=== PATIENT | female | born 1990 | race African-American/Black ===

== ENCOUNTER 2021-08-31 13:55 | Emergency (ER) | payer MEDICAID, SELFPAY ==
[2021-08-31 14:05] VITALS: BP 136/60; PULSE 76; RESP 18; TEMP 36.8; O2SAT 100
--- NOTE | 2021-08-31 15:31 | ED.SKABFB ---
HPI - Skin/Abscess/Foreign Bdy General Chief complaint: Skin/Abscess/Foreign Body <Petr Hurd MD - Last Filed: 08/31/21 16:35> Stated complaint: boil under arm <Petr Hurd MD - Last Filed: 08/31/21 16:35> Time Seen by Provider: 08/31/21 15:06 <Petr Hurd MD - Last Filed: 08/31/21 16:35> Source: patient <Petr Hurd MD - Last Filed: 08/31/21 16:35> Mode of arrival: ambulatory <Petr Hurd MD - Last Filed: 08/31/21 16:35> Limitations: no limitations <Petr Hurd MD - Last Filed: 08/31/21 16:35> History of Present Illness HPI narrative: Patient is a 31-year-old female complaining of swelling and tenderness on her left arm started 1 week ago. Patient states that she has a history of abscess in that area, diagnosed with hidradenitis suppurativa. Patient denies any fever or chills. Patient has no other complaints. <Petr Hurd MD - Last Filed: 08/31/21 16:35> Related Data Allergies/Adverse reactions: Allergies Allergy/AdvReac Type Severity Reaction Status Date / Time No Known Allergies Allergy Verified 08/31/21 15:24 <Petr Hurd MD - Last Filed: 08/31/21 16:35> Review of Systems Review of Systems: Elevated per HPI <Petr Hurd MD - Last Filed: 08/31/21 16:35> All systems reviewed & are unremarkable except as noted in HPI and below <Petr Hurd MD - Last Filed: 08/31/21 16:35> Constitutional: Constitutional: Denies body ache(s), Denies chills, Denies excessive sweating, Denies fatigue, Denies fever(s), Denies headache(s), Denies lethargy, Denies malaise, Denies weakness and Denies weight loss <Petr Hurd MD - Last Filed: 08/31/21 16:35> Eyes: Eyes: Denies blurry vision, Denies change in vision and Denies loss of vision <Petr Hurd MD - Last Filed: 08/31/21 16:35> ENT: Denies dizziness, Denies ear discharge, Denies headache(s), Denies lip swelling, Denies epistaxis, Denies nasal congestion, Denies neck pain, Denies throat swelling and Denies tongue swelling <Petr Hurd MD - Last Filed: 08/31/21 16:35> Cardiovascular: Cardiovascular: Denies chest pain, Denies chest pain at rest, Denies chest pain with activity, Denies diaphoresis, Denies rapid heart rate, Denies edema, Denies irregular heart rhythm, Denies lightheadedness, Denies palpitations, Denies dyspnea and Denies dyspnea on exertion <Petr Hurd MD - Last Filed: 08/31/21 16:35> Respiratory: Respiratory: Denies chest congestion, Denies cough, Denies hemoptysis, Denies dyspnea and Denies dyspnea on exertion <Petr Hurd MD - Last Filed: 08/31/21 16:35> Gastrointestinal: Gastrointestinal: Denies abdominal pain, Denies melena, Denies hematochezia, Denies diarrhea, Denies nausea, Denies vomiting and Denies hematemesis <Pter Hurd MD - Last Filed: 08/31/21 16:35> Musculoskeletal: Musculoskeletal: Denies abnormal gait, Denies deformity, Denies joint swelling, Denies limited range of motion, Denies neck pain and Denies numbness <Petr Hurd MD - Last Filed: 08/31/21 16:35> Neurologic: Denies Abnormal speech present, Denies abnormal gait, Denies confusion, Denies dizziness, Denies headache(s), Denies focal weakness, Denies loss of vision, Denies numbness, Denies Other visual disturbances, Denies Sensory deficit (Neuro) and Denies weakness <Petr Hurd MD - Last Filed: 08/31/21 16:35> Psychiatric: Psychiatric: Denies confusion, Denies depression, Denies auditory hallucinations, Denies homicidal ideation and Denies suicidal ideation <Petr Hurd MD - Last Filed: 08/31/21 16:35> Endocrine: Endocrine: Denies cold intolerance, Denies excessive sweating, Denies fatigue, Denies heat intolerance and Denies palpitations <Petr Hurd MD - Last Filed: 08/31/21 16:35> Hematologic/Lymphatic: Hematologic/Lymphatic: Denies easy bleeding and Denies easy bruising <Petr Hurd MD - Last Filed:
[2021-08-31] MEDS: HYDROcodone/acetaminophen (*CRX) 5-325 MG TABLET 1 TAB PO ×2 (15:39→16:45)
[2021-08-31] MEDS: DOXYCYCLINE HYCLATE 100 MG TABLET PO (16:45)
== END 2021-08-31 16:55 | disposition home or self-care (01) ==
PROVIDERS: Emergency Provider Emergency Medicine
DX: L73.2 Hidradenitis suppurativa (principal)
CPT/HCPCS: 10060; 99283; A9270